=== PATIENT | female | born 2000 ===

== ENCOUNTER 2019-03-04 17:50 | Emergency (ER) | payer MEDICAID, OTHER ==
[2019-03-04 17:50] VITALS: BMI 23.8
[2019-03-04 17:59] VITALS: RESP 18; O2SAT 99
--- NOTE | 2019-03-04 18:33 | ED PDOC ---
HPI: Abdomen Additional Complaint(s): 18 y/o @ 9 wks (as per patient, LMP: end of January or begining of February) is presenting with complaints of vaginal spotting x 1 day and intermittent sharp right lower abdominal pain x 2-3 days. She saw her OBGYN on 02/07. B-HCG at that time was 2,320. Ultrasound showed round gestational sac, but no or yok sac. Repeat B-HCG was performed 03/02 and noted to be 14, 627 with ultrasound showing gestational sac, but no pole or yolk sac. There was a note on transvaginal ultrasound endorsing anembryonic , with message for patient to RTO for discussion of results. Patient did not see the message. Denies fever, chills, nausea, vomitting, dysuria, vaginal discharge. PMH: URI-like symptoms 2 weeks ago with left ear infection treated with azithromycin. Meds: PNV Allergies: denies Surghx: denies Famhx: noncontributory Sochx: denies cigarette use; alcohol & marijuana use until she found out she was ROS: all points reviewed and are negative unless otherwise noted in HPI <Chrissie Campo - Last Filed: 03/06/19 19:13> <Marcella Villareal - Last Filed: 03/08/19 15:27> Time Seen by Provider: 03/04/19 18:03 Chief Complaint (Nursing): Abdominal Pain Supervising Attending Note - Supervising Attending Note The Documented history was done by the: Physician Grain Operations Manager, Attending Physician The documented physical exam was done by the: Physician Grain Operations Manager - Attestation: I have personally seen and examined this patient.: Yes I have fully participated in the care of the patient.: Yes I have reviewed all pertinent clinical information: Yes - Notes: Notes:: DW pt findings of her outpatient ultrasound and her bloodwork. Expectant management for miscarriage and followup with product marketing programs manager. Returns parameters discussed. <Marcella Villareal - Last Filed: 03/08/19 15:27> Past Medical History Vital Signs: Last Vital Signs Temp 98.2 F 03/04/19 17:54 Pulse 89 03/04/19 17:54 Resp 18 03/04/19 17:54 BP 109/63 03/04/19 17:54 Pulse Ox 99 03/04/19 17:54 - Medical History PMH: Anxiety, Bipolar Disorder, Depression, Sexually Transmitted Disease (chlamydia 2018) Denies: Chronic Kidney Disease - Family History Family History: States: Unknown Family Hx <Chrissie Campo - Last Filed: 03/06/19 19:13> Vital Signs: Last Vital Signs Temp 98.0 F 03/04/19 20:39 Pulse 84 03/04/19 20:39 Resp 18 03/04/19 20:39 BP 114/65 03/04/19 20:39 Pulse Ox 99 03/06/19 19:13 <MonoMarcella J - Last Filed: 03/08/19 15:27> - Home Medications Home Medications: Ambulatory Orders Medication Instructions Recorded Azithromycin [Zithromax] 250 mg PO DAILY #4 tab 02/25/19 Loratadine [Claritin] 10 mg PO DAILY #10 tab 02/25/19 Naproxen [Naprosyn] 500 mg PO BID PRN #15 tablet 03/08/19 - Allergies Allergies/Adverse Reactions: Allergies Allergy/AdvReac Type Severity Reaction Status Date / Time No Known Allergies Allergy Verified 03/08/19 03:47 Physical Exam - Physical Exam Appears: Positive for: Non-toxic Head Exam: Positive for: ATRAUMATIC, NORMAL INSPECTION Skin: Positive for: Dry. Negative for: Rash Eye Exam: Positive for: PERRL ENT: Positive for: Normal ENT Inspection. Negative for: Nasal Congestion, Pharyngeal Erythema, Tonsillar Exudate Cardiovascular/Chest: Positive for: Regular Rate, Rhythm. Negative for: Murmur Respiratory: Positive for: Normal Breath Sounds. Negative for: Crackles, Wheezing Gastrointestinal/Abdominal: Positive for: Bowel Sounds, Soft, Tenderness. Negative for: Distended, Guarding, Rebound Back: Positive for: Normal Inspection. Negative for: L CVA Tenderness, R CVA Tenderness Extremity: Negative for: Tenderness Neurological/Psych: Positive for: Awake, Alert <Chrissie Campo - Last Filed: 03/06/19 19:13> - ECG O2 Sat by Pulse Oximetry: 99 <Chrissie Campo - Last Filed: 03/06/19 19:13> - Laboratory Results Lab Results: Urine Color Yellow (YELLOW) 03/04/19 20:36 Urine Clarity Cloudy (Clear) 03/04/19 20:36 Urine pH 6.0 (5.0-8.0) 03/04/19 20:36 Ur Specific [place] 1.026 (1.003-1.030) 03/04/19 20:36 Urine Protein 30 mg/dL (NEGATIVE) 03/04/19 20:36 Urine Glucose (UA) Neg mg/dL (NEGATIVE) 03/04/19 20:36 Urine Ketones Negative mg/dL (NEGATIVE) 03/04/19 20:36 Urine Blood Small (NEGATIVE) 03/04/19 20:36 Urine Nitrate Negative (NEGATIVE) 03/04/19 20:36 Urine Bilirubin Negative (NEGATIVE) 03/04/19 20:36 Urine Urobilinogen 0.2-1.0 mg/dL (0.2-1.0) 03/04/19 20:36 Ur Leukocyte Esterase Trace Jim/uL (Negative) 03/04/19 20:36 Urine RBC (Auto) 22 /hpf (0-3) H 03/04/19 20:36 Urine Microscopic WBC 5 /hpf (0-5) 03/04/19 20:36 Ur Squamous Epith Cells 3 /hpf (0-5) 03/04/19 20:36 Calcium Oxalate Crystal Rare /hpf (<OCC) 03/04/19 20:36 Urine Bacteria Rare (<OCC) 03/04/19 20:36 Beta HCG, Quant 21826.00 mIU/mL 03/04/19 19:18 <Marcella Villaeral - Last Filed: 03/08/19 15:27> Disposition - Disposition Disposition Time: 21:00 <Chrissie Campo - Last Filed: 03/06/19 19:13> Counseled Patient/Family Regarding: Studies Performed, Diagnosis - Disposition Disposition: Routine/Home <Marcella Villareal - Last Filed: 03/08/19 15:27> - Clinical Impression Clinical Impression: Miscarriage - Disposition Condition: STABLE Additional Instructions: PLEASE FOLLOWUP WITH YOUR COMMUNITY OUTREACH WORKER ON THURSDAY FOR FURTHER MANAGEMENT. Instructions: Miscarriage (DC)
[2019-03-04] MEDS ORDERED: Lactated Ringer's 1,000 ML IV STA (18:34)
[2019-03-04 20:40] VITALS: BP 114/65; PULSE 84; TEMP 98
[2019-03-04 20:52] LABS: SQUAMOUS EPITHIAL 3 /hpf (0-5); URINE BACTERIA RARE (<OCC); URINE BILIRUBIN NEGATIVE (NEGATIVE); URINE BLOOD SMALL (NEGATIVE); URINE CALCIUM OXALATE CRYSTALS RARE /hpf (<OCC); URINE CLARITY CLOUDY (Clear); URINE COLOR YELLOW (YELLOW); URINE GLUCOSE (UA) NEG (NEGATIVE); URINE LEUKOCYTE ESTERASE TRACE Leu/uL (Negative); URINE PROTEIN 30 mg/dL (NEGATIVE); URINE UROBILINOGEN 0.2-1.0 mg/dL (0.2-1.0)
== END 2019-03-04 20:40 | disposition home or self-care (01) ==
LOC: H.ER 17:50
DX: O03.9 Complete or unspecified spontaneous abortion without complication (principal); F31.9 Bipolar disorder, unspecified; F41.9 Anxiety disorder, unspecified

== ENCOUNTER 2019-03-08 03:43 | Emergency (ER) | payer OTHER ==
[2019-03-08 03:48] VITALS: BMI 25.2
[2019-03-08 03:51] VITALS: RESP 18; TEMP 98
[2019-03-08] MEDS ORDERED: Sodium Chloride 0.9% 1,000 ML IV STA (04:05)
--- NOTE | 2019-03-08 04:09 | ED PDOC ---
HPI: Female Pain Time Seen by Provider: 03/08/19 03:53 Chief Complaint (Nursing): Female Genitourinary Chief Complaint (Provider): VAGINAL BLEEDING/PAIN History Per: Patient (18 Y/O FEMALE APPROX 9 WEEK GEST NOTED WITH IMPENDING MISCARRIAGE 3 DAYS AGO HERE WITH VAGINAL BLEEDING/ ABD PAIN/VOMITING UNCONTROLLED BY MIDOL/TYLENOL. PATIENT WAS SEEN THURSDAY. PATIENT HAD ULTRASOUND PRIOR TO ED VISIT DEMONSTRATING ANEMBRYONIC . 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 Past Medical History Reviewed: Historical Data, Nursing Documentation, Vital Signs Vital Signs: Last Vital Signs Temp 98.0 F 03/08/19 03:47 Pulse 99 H 03/08/19 03:47 Resp 18 03/08/19 03:47 BP 126/80 03/08/19 03:47 Pulse Ox 100 03/08/19 03:47 - Medical History PMH: Anxiety, Bipolar Disorder, Depression, Sexually Transmitted Disease (chlamydia 2018) Denies: Chronic Kidney Disease - Family History Family History: States: Unknown Family Hx - Home Medications Home Medications: Ambulatory Orders Medication Instructions Recorded Azithromycin [Zithromax] 250 mg PO DAILY #4 tab 02/25/19 Loratadine [Claritin] 10 mg PO DAILY #10 tab 02/25/19 - Allergies Allergies/Adverse Reactions: Allergies Allergy/AdvReac Type Severity Reaction Status Date / Time No Known Allergies Allergy Verified 03/08/19 03:47 Review of Systems ROS Statement: Except As Marked, All Systems Reviewed And Found Negative Physical Exam - Reviewed Nursing Documentation Reviewed: Yes Vital Signs Reviewed: Yes - Physical Exam Appears: Positive for: Well, Non-toxic, No Acute Distress Head Exam: Positive for: ATRAUMATIC, NORMAL INSPECTION, NORMOCEPHALIC Skin: Positive for: Normal Color, Warm, DRY Eye Exam: Positive for: EOMI, Normal appearance, PERRL ENT: Positive for: Normal ENT Inspection Neck: Positive for: Normal, Painless ROM Cardiovascular/Chest: Positive for: Regular Rate, Rhythm Respiratory: Positive for: CNT, Normal Breath Sounds Gastrointestinal/Abdominal: Positive for: Normal Exam, Soft Pelvic Exam: Positive for: Other (MODERATE VAGINAL BLEEDING NOTED IN VAULT. NO CLOTS.) Back: Positive for: Normal Inspection Extremity: Positive for: Normal ROM Neurological/Psych: Positive for: Awake, Alert, Normal Tone - Laboratory Results Result Diagrams: 03/08/19 04:55 03/08/19 04:55 - ECG O2 Sat by Pulse Oximetry: 100 Disposition - Clinical Impression Clinical Impression: Miscarriage - Patient ED Disposition Is Patient to be Admitted: Transfer of Care - Disposition Disposition: Transfer of Care Disposition Time: 07:00 Condition: FAIR Patient Signed Over To: Kasie Escalera Handoff Comments: PENDING ULTRASOUND
[2019-03-08 05:03] LABS: BASO # 0.1 K/uL (0.0-0.2); BASO % 0.5 % (0.0-2.0); EOS % 0.2 % (0.0-4.0); HEMOGLOBIN 11.9 g/dL (12.0-16.0); LYMPH # 1.5 K/uL (1.0-4.3); LYMPH % 10.6 % (20.0-40.0); MEAN CORPUSCULAR HEMOGLOBIN 22.8 pg (27.0-31.0); MEAN CORPUSCULAR HGB CONC 31.3 g/dL (33.0-37.0); MEAN PLATELET VOLUME 8.9 fl (7.2-11.7); MONO # 0.5 K/uL (0.0-0.8); MONO % 3.8 % (0.0-10.0); NEUT # 12.1 K/uL (1.8-7.0); NEUT % 84.9 % (50.0-75.0); RBC 5.23 Mil/uL (3.80-5.20); RED CELL DISTRIBUTION WIDTH 17.5 % (11.5-14.5); WHITE BLOOD COUNT 14.3 K/uL (4.8-10.8)
[2019-03-08 05:12] LABS: ALB/GLOB RATIO 1.6 (1.0-2.1); ALBUMIN 5.1 g/dL (3.5-5.0); ALT/SGPT 46 U/L (9-52); AST/SGOT 42 U/L (14-36); BLOOD UREA NITROGEN 13 mg/dl (7-17); CALCIUM 9.8 mg/dL (8.4-10.2); GFR NON-AFRICAN AMERICAN > 60
--- NOTE | 2019-03-08 07:03 | ED PDOC ---
- Laboratory Results Result Diagrams: 03/08/19 04:55 03/08/19 04:55 Lab Results: Total Bilirubin 0.4 mg/dl (0.2-1.3) 03/08/19 04:55 AST 42 U/L (14-36) H 03/08/19 04:55 ALT 46 U/L (9-52) 03/08/19 04:55 Alkaline Phosphatase 52 U/L (38-126) 03/08/19 04:55 Total Protein 8.2 G/DL (6.3-8.2) 03/08/19 04:55 Albumin 5.1 g/dL (3.5-5.0) H 03/08/19 04:55 Globulin 3.1 gm/dL (2.2-3.9) 03/08/19 04:55 Albumin/Globulin Ratio 1.6 (1.0-2.1) 03/08/19 04:55 Beta HCG, Quant 7057.20 mIU/mL 03/08/19 04:55 - ECG O2 Sat by Pulse Oximetry: 100 (RA) Pulse Ox Interpretation: Normal Medical Decision Making Medical Decision Makin Patient signed out to me by Dr. Obrien pending US report, reassessment, final disposition 08 US Transvaginal FINDINGS: UTERUS: Measures 7.5 x 5.2 x 3.9 cm. No discrete mass. Heterogeneous echotexture. ENDOMETRIUM: Measures 13 mm in diameter. Heterogeneously echogenic material seen within the endometrial cavity along with a small amount of fluid.. This could represent blood products. There is no blood flow demonstrated within this endometrial soft tissue on color Doppler interrogation. CERVIX: No cervical abnormality identified. RIGHT OVARY: Measures 2.9 x 3.1 x 1.8 cm. No solid mass. Normal flow. LEFT OVARY: Measures 2.2 x 2.5 x 1.1 cm. No solid mass. Normal flow. FREE FLUID: No significant free fluid noted. OTHER FINDINGS: None. IMPRESSION: Heterogeneously echogenic material within the endometrial cavity. The endometrium measures up to 13 mm in width. Possible endometrial blood products. No blood flow demonstrated to suggest neoplasm. No history of recent termination of is provided. The remainder of the examination is unremarkable. [id number] Xiong, OB concrete worker, who states patient is stable to be discharged home; patient can follow up in his office. Plan for discharge discussed with patient, who is agreeable. Return precautions given. ScribeAttestation: Documented byLeny Thomas, acting as a scribe for Kasie Escalera MD. Provider ScribeAttestation: All medical record entries made by the Scribe were at my direction and personal ly dictated by me. I have reviewed the chart and agree that the record accurately reflects my personal performance of the history, physical exam, medical decision making, and the department course for this patient. I have also personally directed, reviewed, and agree with the discharge instructions and disposition. Disposition - Clinical Impression Clinical Impression: Spontaneous - POA Present On Arrival: None - Disposition Referrals: Freddie Xiong DO [Staff Provider] - Disposition: Routine/Home Disposition Time: 08:46 Condition: STABLE Prescriptions: Naproxen [Naprosyn] 500 mg PO BID PRN #15 tablet PRN Reason: Pain, Moderate (4-7) Instructions: Miscarriage Forms: [employer] ([place])
--- NOTE | 2019-03-08 08:32 | US ---
Date of service: 03/08/2019 HISTORY: R/O RETAINED PRODUCTS COMPARISON: None available. TECHNIQUE: Transvaginal FINDINGS: UTERUS: Measures 7.5 x 5.2 x 3.9 cm. No discrete mass. Heterogeneous echotexture. ENDOMETRIUM: Measures 13 mm in diameter. Heterogeneously echogenic material seen within the endometrial cavity along with a small amount of fluid.. This could represent blood products. There is no blood flow demonstrated within this endometrial soft tissue on color Doppler interrogation. CERVIX: No cervical abnormality identified. RIGHT OVARY: Measures 2.9 x 3.1 x 1.8 cm. No solid mass. Normal flow. LEFT OVARY: Measures 2.2 x 2.5 x 1.1 cm. No solid mass. Normal flow. FREE FLUID: No significant free fluid noted. OTHER FINDINGS: None. IMPRESSION: Heterogeneously echogenic material within the endometrial cavity. The endometrium measures up to 13 mm in width. Possible endometrial blood products. No blood flow demonstrated to suggest neoplasm. No history of recent termination of is provided. The remainder of the examination is unremarkable.
[2019-03-08 08:58] VITALS: BP 101/57; PULSE 63
[2019-03-14 07:58] VITALS: O2SAT 100
== END 2019-03-08 08:57 | disposition home or self-care (01) ==
LOC: H.ER 03:43
DX: O03.9 Complete or unspecified spontaneous abortion without complication (principal); Z86.59 Personal history of other mental and behavioral disorders
CPT/HCPCS: 76817; 80053; 84702; 85025; 86850; 86900; 96374; 96375; 99285; J2270; J2405; J7030